=== PATIENT | male | born 1995 | race Caucasian/White ===

== ENCOUNTER → 2019-01-09 | Emergency (ER) | payer OTHER ==
[2019-01-09] MEDS: KETOROLAC 30 MG INJ IM (21:03)
== END | disposition home or self-care (01) ==
LOC: FTE 18:28
DX: M54.5 Low back pain (principal)
CPT/HCPCS: 96372; 99284-25

== ENCOUNTER 2019-01-23 12:18 | Emergency (ER) | payer OTHER | END 2019-01-23 14:12 | disposition home or self-care (01) | LOC: E/R 12:18 | DX: J02.9 Acute pharyngitis, unspecified (principal) | CPT/HCPCS: 99283; Z7502 ==

== ENCOUNTER 2019-02-05 14:55 | Emergency (ER) | payer OTHER | END 2019-02-05 17:48 | disposition home or self-care (01) | LOC: FTE 14:55 | DX: S60.511A Abrasion of right hand, initial encounter (principal); F17.210 Nicotine dependence, cigarettes, uncomplicated; W26.8XXA Contact with other sharp object(s), not elsewhere classified, initial encounter; Y92.9 Unspecified place or not applicable | CPT/HCPCS: 73110; 73110-RT; 73130-RT; 99283-25 ==